=== PATIENT | male | born 2000 | race Caucasian/White ===

== ENCOUNTER 2018-05-21 13:38 | Emergency (ER) | payer OTHER ==
[~2018-05-21] VITALS: Ht 175.3 cm; Wt 67.1 kg
[2018-05-21 13:51] VITALS: BP 141/82
== END 2018-05-21 14:26 | disposition home or self-care (01) ==
LOC: ER 13:38
DX: S01.511A Laceration without foreign body of lip, initial encounter (principal); W22.8XXA Striking against or struck by other objects, initial encounter; Y93.89 Activity, other specified; Y99.8 Other external cause status; Y92.89 Other specified places as the place of occurrence of the external cause
CPT/HCPCS: 12013

== ENCOUNTER 2022-12-22 09:53 | Emergency (ER) | payer OTHER, MEDICAID ==
[~2022-12-22] VITALS: Ht 182.9 cm; Wt 77.2 kg
[2022-12-22 10:37] LABS: Basophils # (auto) 0 10 ^3/uL (0-0.2); Basophils % (auto) 0.4 % (0.0-2.0); Eosinophils # (auto) 0.1 10 ^3/uL (0-0.8); Eosinophils % (auto) 1.7 % (0.0-7.0); Hematocrit 42.4 % (41.0-53.0); Hemoglobin 14.8 g/dL (13.5-17.5); Lymphocytes # (auto) 1.8 10 ^3/uL (0.4-5.4); Lymphocytes % (auto) 44.2 % (10.0-50.0); Mean Corpuscular Hgb Conc. 34.9 g/dL (32.0-36.0); Mean Corpuscular Volume 83.3 fL (80.0-100.0); Monocytes # (auto) 0.4 10 ^3/uL (0-1.3); Monocytes % (auto) 9.8 % (0.0-12.0); Neutrophils # (auto) 1.8 10 ^3/uL (1.6-8.6); Neutrophils % (auto) 43.9 % (37.0-80.0); Nucleated Red Blood Cells % 0.1 %; Red Blood Cells 5.09 10^6/uL (4.5-5.90); Red Cell Distribution Width 13.2 % (11.8-14.3)
[2022-12-22 10:41] LABS: INR 0.94 (0.9-1.15); Partial Thromboplastin Time 28.5 sec (24.6-33.4)
[2022-12-22 10:57] LABS: Potassium 3.8 mmol/L (3.5-5.1)
[2022-12-22 11:02] LABS: BUN/Creatinine Ratio 10.5 (10.0-20.0); Calcium 9.3 mg/dL (8.5-10.1); Magnesium 2.2 mg/dL (1.6-2.6)
[2022-12-22 11:05] LABS: Bilirubin, Total 0.4 mg/dL (0.2-1.0); Total Protein 7.4 g/dL (6.4-8.2)
[2022-12-22] MEDS ORDERED: IBUPROFEN 800 MG TAB PO ONE (12:30)
[2022-12-22] MEDS ORDERED: IOHEXOL 350 MG/ML 100ML IJ ONE (14:07)
[2022-12-22] MEDS ORDERED: IBU600T PO (16:35)
[2022-12-22 16:48] VITALS: BP 127/79
== END 2022-12-22 16:56 | disposition home or self-care (01) ==
LOC: ER 09:53 → EDBD 09:53 → ER 16:56
DX: R07.89 Other chest pain (principal); F17.210 Nicotine dependence, cigarettes, uncomplicated
CPT/HCPCS: 36415; 71046; 71275; 80053; 83735; 83880; 84484; 85025; 85379; 85610; 85730; 93005; 99285; Q9967

== ENCOUNTER 2023-11-05 18:17 | Emergency (ER) | payer OTHER, MEDICAID ==
[~2023-11-05] VITALS: Ht 175.3 cm; Wt 78.9 kg
[~2023-11-05 18:17] MED LIST: IBU600T PO
[2023-11-05] MEDS: ONDANSETRON ODT 4 MG TAB PO ONE (18:35)
[2023-11-05] MEDS: DexAMETHasone SOD PHOS 10MG/1ML VIAL INJ IM ONE (19:52)
[2023-11-05 19:58] VITALS: BP 115/85; PULSE 84; RESP 18; TEMP 98.4; O2SAT 97
== END 2023-11-05 20:02 | disposition home or self-care (01) ==
LOC: ER 18:17
DX: T59.811A Toxic effect of smoke, accidental (unintentional), initial encounter (principal); F17.210 Nicotine dependence, cigarettes, uncomplicated; Y92.098 Other place in other non-institutional residence as the place of occurrence of the external cause
CPT/HCPCS: 71046; 96372; 99283; J1100; Q0162